=== PATIENT | male | born 1965 | race Caucasian/White ===

== ENCOUNTER 2018-11-05 09:38 | Outpatient (CLI) | payer OTHER, BC | END 2018-11-05 09:39 | disposition home or self-care (01) | LOC: C.LAB 09:38 → C.PAT 09:39 | DX: Z01.818 Encounter for other preprocedural examination (principal); K40.90 Unilateral inguinal hernia, without obstruction or gangrene, not specified as recurrent ==

== ENCOUNTER → 2018-11-09 | Day surgery (SDC) | payer OTHER ==
[2018-11-05 09:54] VITALS: BMI 27.2
[~2018-11-09] MED LIST: Bupivacaine 0.25% 20 ML INJ IJ ONE; Bupivacaine Liposomal Inj 20 ml INFIL ONE; HYDROmorphone 0.5 mg/0.5 ml ISec IVP PRN; Lidocaine/Epinephrine 1% 1:100000 10 ML IJ ONE; Midazolam 2 MG/2 ML VIAL ONE; Neostigmine 1:1000 (1 mg/ml) Inj ONE; Oxycodone/Acetaminophen 5/325 mg Tab ONE; Oxycodone/Acetaminophen 5/325 mg Tab PO ONE; Propofol 10 mg/ml Inj (20 ML) ONE; Sodium Chloride 0.9% 40 ML IV ONE; Tobramycin 0.3% OPHT SOLN OU SCH; ceFAZolin 1 gm in NS 2 GM/200 ML BAG IVPB ONE; oxyCODONE 5 mg Immediate Release Tab PO ONE
--- NOTE | 2018-11-09 14:50 | PCM.SURG1 ---
Surgeon's Initial Post Op Note - Surgeon's Notes Surgeon: Dr. Fields Shoulder Pad Molder: Merchant LEONY2, Belle PALMER Type of Anesthesia: General Endo Pre-Operative Diagnosis: Bilateral Inguinal Hernia Operative Findings: Left Pantaloon Hernia, Right Direct hernia. For Details see op note Post-Operative Diagnosis: 1. Left Pantaloon hernia. 2. Right Direct Inguinal Hernia. 3. Right Cord Lipoma Operation Performed: 1. Robotic Bilateral Inguinal Hernia Repair with Mesh2. 2. Excision of Right Cord Lipoma. 3. TAP Block. 4. Caldera Cather Placement Specimen/Specimens Removed: 1. Left Hernia Sac. 2. Right Cord Lipoma Estimated Blood Loss: EBL {In ML}: 5 Blood Products Given: N/A Drains Used: No Drains Post-Op Condition: Good Date of Surgery/Procedure: 11/09/18 Time of Surgery/Procedure: 14:50
[2018-11-09 17:22] VITALS: O2SAT 100
[2018-11-09 18:10] VITALS: BP 147/76; PULSE 88; RESP 18; TEMP 98
--- NOTE | 2018-11-10 04:20 | OP ---
PROCEDURE DATE: 11/09/2018 PREOPERATIVE DIAGNOSIS: Bilateral inguinal hernia. POSTOPERATIVE DIAGNOSES: 1. Bilateral inguinal hernia, left direct and indirect as well as right direct hernia. 2. Large lipoma of the cord on the right side. PROCEDURE DONE: 1. Robotic bilateral inguinal hernia repair with mesh. 2. Robotic excision of the lipoma of the cord on the right side. 3. Laparoscopic bilateral transversus abdominis plane block placement. SURGEON: Abner Fields MD OCEANOGRAPHIC METEOROLOGIST: KALIA Ricketts. ANESTHESIA: General endotracheal tube anesthesia. ESTIMATED BLOOD LOSS: Around 10 mL. DRAINS: None. PATHOLOGY: Lipoma of the cord was sent to the Pathology. COMPLICATIONS: None. INTRAOPERATIVE FINDINGS: The patient had a left direct and indirect pantaloon hernia, and on the right side, the patient had a direct inguinal hernia as well as a large lipoma of the cord. DESCRIPTION OF PROCEDURE: On intraoperative steps, this is a 53-year-old male who was diagnosed with bilateral inguinal hernia. The patient had a left-sided large inguinal hernia, and the patient was consented for the robotic bilateral inguinal hernia repair with a mesh. The patient was brought to the OR, placed supine on the operating table. After induction of the anesthesia, the abdomen was prepped and draped in usual sterile fashion. The supraumbilical transverse incision was made using open technique. Peritoneal cavity was entered. Pneumo was created. Another 3-8 mm port was placed in upper abdomen, and a robot was brought in. Camera arm as well as arm 1 and arm 2 were docked. Peritoneum was dissected from the left ASIS up to the right ASIS, and dissection was carried down in the midline up to the space of Retzius, and on the right side, the peritoneum reflection was from the vas deferens and spermatic cord vessels, and the direct hernial sac was reduced back into the peritoneal cavity, and large lipoma of the cord was excised. Inferior dissection was done up to the pelvic brim. Now, a similar dissection was done on the left side. The peritoneum reflection was affected from the vas deferens to the spermatic cord vessels, and the indirect hernial sac was reduced back to peritoneal cavity. There was another direct hernia that was reduced, and that was everted and it was tacked with a tacker, and now inferior dissection was done up to the pelvic brim. The bilateral right and left anatomical mesh was placed. Both mesh were implanted. After proper implantation of the mesh, the peritoneum was sutured. The peritoneum was sutured with 0 Vicryl as well as 3-0 PDS continuous suture, and after that, the procedure was converted to laparoscopy. The bilateral TAP block was given. A 30:30 mL of Exparel with was injected into the transverse abdominis muscles plane area, and after proper TAP block, all the instrument was taken out. All the ports were taken out under vision. Pneumo was deflated. Umbilical port site was closed in two layers, the fascia with 0 Vicryl interrupted suture, skin with 4-0 Monocryl, and dry sterile dressing was applied. The patient tolerated the procedure well. Count of instrument and gauze was correct. There were no apparent complications. Abner Fields MD
== END | disposition home or self-care (01) ==
LOC: C.SDS 08:54
PROVIDERS: ATTEND Surgery Surgical Critical Care
DX: K40.20 Bilateral inguinal hernia, without obstruction or gangrene, not specified as recurrent (principal); D17.6 Benign lipomatous neoplasm of spermatic cord
CPT/HCPCS: 49650; 88302; 88304; C1781; J0690; J1170; J1885; J2001; J2250; J2405; J2704; J2710; J3010